=== PATIENT | female | born 1965 | race Caucasian/White ===

== ENCOUNTER → 2017-04-19 | Outpatient (REF) | payer OTHER | LOC: M LAB REF 13:06 | PROVIDERS: ATTEND Internal Medicine | DX: M54.5 Low back pain (principal) ==

== ENCOUNTER → 2018-01-19 | Outpatient (REF) | payer OTHER ==
[2018-01-19 20:37] LABS: C REACTIVE PROTEIN QUANTITATIV 1.96 MG/DL (0.00-0.30)
== END ==
LOC: M LAB REF 17:42
DX: M06.4 Inflammatory polyarthropathy (principal)

== ENCOUNTER → 2018-06-20 | Outpatient (REF) | payer OTHER ==
[2018-06-20 15:57] LABS: C REACTIVE PROTEIN QUANTITATIV 0.91 MG/DL (0.00-0.30)
== END ==
LOC: M LAB REF 14:37
DX: M06.4 Inflammatory polyarthropathy (principal)

== ENCOUNTER → 2018-06-20 | Outpatient (REF) | payer OTHER ==
[2018-06-21 13:54] LABS: FOLLICLE STIMULATING HORMONE 48.6 mIU/mL
[2018-06-21 13:54] LABS: LUTEINIZING HORMONE 24.8 mIU/mL
== END ==
LOC: M LAB REF 06-21 11:51
DX: N95.1 Menopausal and female climacteric states (principal)

== ENCOUNTER → 2019-07-06 | Outpatient (REF) | payer OTHER | LOC: M LAB REF 12:22 | PROVIDERS: ATTEND Internal Medicine | DX: M06.4 Inflammatory polyarthropathy (principal) ==

== ENCOUNTER → 2020-04-11 | Outpatient (REF) | payer OTHER | LOC: M LAB REF 12:27 | PROVIDERS: ATTEND Internal Medicine | DX: M06.4 Inflammatory polyarthropathy (principal) ==

== ENCOUNTER → 2020-07-22 | Outpatient (REF) | payer OTHER ==
[2020-07-23 16:08] LABS: Lyme Disease IgG/IgM Antibodie <0.91 ISR (0.00-0.90); Lyme Disease IgM Ab Quantitati <0.80 index (0.00-0.79)
== END ==
LOC: M LAB REF 12:33
PROVIDERS: ATTEND Internal Medicine
DX: M46.90 Unspecified inflammatory spondylopathy, site unspecified (principal); Z11.59 Encounter for screening for other viral diseases

== ENCOUNTER → 2020-09-13 | Outpatient (CLI) | payer OTHER ==
--- NOTE | 2020-09-13 17:20 | REP ---
INDICATION: ADNEXAL PAIN. COMPARISON: 01/08/2005. TECHNIQUE: Transabdominal scanning performed. FINDINGS: Uterine dimensions are 8.2 x 3.0 x 4.5 cm. Endometrial echo is 3 mm in AP dimension and centrally placed. The bladder measures 10.9 x 6.7 x 10.2 cm. The right ovary has dimensions of 2.2 x 1.1 x 1.8 cm. It's Doppler flow is normal with a resistive index of 0.60. The left ovary dimensions are 1.8 x 1.3 x 1.2 cm. It's Doppler flow was normal with resistive index of 0.57. There is no adnexal mass identified. No free fluid is seen in the cul-de-sac. IMPRESSION: Negative pelvic ultrasound. <Electronically signed by Emory Hawkins > 09/13/20 1800
== END ==
LOC: M RAD 16:01
PROVIDERS: ATTEND Internal Medicine
DX: R10.2 Pelvic and perineal pain (principal)

== ENCOUNTER → 2020-12-24 | Outpatient (REF) | payer OTHER | LOC: M LAB REF 12:04 | PROVIDERS: ATTEND Internal Medicine | DX: M06.4 Inflammatory polyarthropathy (principal) ==

== ENCOUNTER → 2022-11-04 | Outpatient (CLI) | payer OTHER | LOC: M WUC 10:18 | PROVIDERS: ATTEND Internal Medicine | DX: R07.89 Other chest pain (principal) ==

== ENCOUNTER 2022-12-30 12:52 | Outpatient (RCR) | payer OTHER | END 2023-01-01 | LOC: M PT 12:52 | PROVIDERS: ATTEND Internal Medicine | DX: R42 Dizziness and giddiness (principal) ==

== ENCOUNTER 2023-01-06 16:00 | Outpatient (RCR) | payer OTHER | END 2023-01-31 | LOC: M PT 16:00 | PROVIDERS: ATTEND Internal Medicine | DX: R42 Dizziness and giddiness (principal) ==

== ENCOUNTER → 2023-01-13 | Outpatient (REF) | payer OTHER | LOC: M LAB REF 16:30 | PROVIDERS: ATTEND Internal Medicine | DX: Z79.899 Other long term (current) drug therapy (principal) ==

== ENCOUNTER 2023-09-09 08:57 | Day surgery (SDC) | payer OTHER ==
[~2023-09-09] VITALS: Ht 162.6 cm; Wt 71.7 kg
[~2023-09-09 08:57] MED LIST: COSE1INJ SC; ESTR0.5T16 PO; LIDOCAINE 2% 100MG/5ML SDV (FOR ANES.) As Ordered ONE; NS 1,000 ML IV ONE; propofoL 200 MG/20 ML VIAL As Ordered ONE
[2023-09-09 09:51] VITALS: TEMP 97.5
[2023-09-09 10:10] VITALS: BP 132/72; O2SAT 99
== END 2023-09-09 10:15 | disposition home or self-care (01) ==
LOC: M OPP 08:57
PROVIDERS: ATTEND Surgery
DX: Z12.11 Encounter for screening for malignant neoplasm of colon (principal); Z87.891 Personal history of nicotine dependence; Z79.620 Long term (current) use of immunosuppressive biologic; Z79.818 Long term (current) use of other agents affecting estrogen receptors and estrogen levels

== ENCOUNTER → 2025-01-10 | Outpatient (CLI) | payer OTHER ==
[~2025-01-10] MED LIST changes: -LIDOCAINE 2% 100MG/5ML SDV (FOR ANES.) As Ordered ONE; -NS 1,000 ML IV ONE; -propofoL 200 MG/20 ML VIAL As Ordered ONE
== END ==
LOC: M WHC 07:09
PROVIDERS: ATTEND Internal Medicine
DX: R79.89 Other specified abnormal findings of blood chemistry (principal); K76.0 Fatty (change of) liver, not elsewhere classified

== ENCOUNTER → 2025-01-16 | Outpatient (REF) | payer OTHER | LOC: M LAB REF 17:13 | PROVIDERS: ATTEND Internal Medicine | DX: N95.2 Postmenopausal atrophic vaginitis (principal); N32.9 Bladder disorder, unspecified ==

== ENCOUNTER → 2025-02-08 | Outpatient (CLI) | payer OTHER | LOC: M RAD 14:07 | PROVIDERS: ATTEND Internal Medicine | DX: N32.9 Bladder disorder, unspecified (principal); R10.9 Unspecified abdominal pain ==

== ENCOUNTER → 2025-04-24 | Outpatient (REF) | payer OTHER | LOC: M LAB REF 13:27 | PROVIDERS: ATTEND Internal Medicine | DX: M46.90 Unspecified inflammatory spondylopathy, site unspecified (principal) ==